=== PATIENT | female | born 1990 | race Caucasian/White ===

== ENCOUNTER 2017-02-25 23:55 | Emergency (ER) | payer OTHER ==
[~2017-02-25] VITALS: Ht 157.5 cm; Wt 54.4 kg
[~2017-02-25 23:55] MED LIST: ACHD5005 PO; AZIT250T81 PO; FRS325T PO; IBP600T1 PO; NAPR-243 PO; OXYC-12 PO; PENI500T PO; PREN1TAB25 PO; PREN1TAB39; TRAM50TA2 PO; VALACYCLOVIR HCL PO
[2017-02-26] MEDS ORDERED: NS IV 1000 ML 1,000 ML IV STA (00:14)
[2017-02-26] MEDS ORDERED: fentaNYL INJECTION 100 MCG/2 ML AMP IVP STA (00:14)
[2017-02-26] MEDS ORDERED: ONDANSETRON 4 MG/2 ML (SDV) Z0FRAN IVP ONE (00:15)
[2017-02-26] MEDS ORDERED: HYOSCYAMINE 0.125 MG (LEVSIN) TAB SL ONE (00:15)
[2017-02-26 00:19] VITALS: BP 135/94
--- NOTE | 2017-02-26 00:27 | ED Abdominal Pain ---
General Chief Complaint: Abdominal/GI Problems Stated Complaint: VOMITING AND DIARRHEA Nursing Triage Note: N/V/D Sepsis Screen: No Definite Risk Source of Information: Patient Exam Limitations: No Limitations History of Present Illness Time Seen By Provider: 00:07 Initial Comments Here with report of mid epigastric pain and nausea, vomiting and diarrhea. Patient states that she returned from [place] today and got back about 10 p.m. She ate food at a truck stop and this upset her stomach. She states that she's had 6 episodes of diarrhea since 10 p.m. as well as a couple episodes of vomiting. Denies blood in her vomit or stool. Denies dysuria. Denies fevers but reports chills. Timing/Duration: 4-6 Hours Severity/Quality: Moderate, Aching, Cramping Location: Epigastric Radiation: No Radiation Activities at Onset: None Modifying Factors: Worsens With Eating, Improves With Resting Associated Symptoms: No Back Pain, No Chest Pain, No Fever/Chills, No Nausea/ Vomiting, No Rash, No Shortness of Air, No Weakness Allergies and Home Medications Allergies Coded Allergies: morphine (Verified Allergy, Mild, 07/05/14) Home Medications No Active Prescriptions or Reported Meds Review of Systems Constitutional: see HPI, chills, No fever EENTM: No Symptoms Reported Respiratory: No Symptoms Reported Cardiovascular: No Symptoms Reported Gastrointestinal: See HPI, Abdominal Pain, Denies Blood Streaked Stools, Diarrhea, Nausea, Denies Rectal Bleeding, Vomiting Genitourinary: No Symptoms Reported Musculoskeletal: no symptoms reported Skin: no symptoms reported Psychiatric/Neurological: No Symptoms Reported All Other Systems Reviewed Negative Unless Noted: Yes Past Uhwdqmp-Kkkkzj-Qzbqbh Hx Patient Social History Alcohol Use: Occasionally Uses Recreational Drug Use: Yes Drug of Choice: CANNIBUS Smoking Status: Current Everyday Smoker Type Used: Cigarettes 2nd Hand Smoke Exposure: Yes Recent Foreign Travel: No Contact w/Someone Who Travel: No Recent Infectious Disease Expo: No Recent Hopitalizations: No Immunizations Up To Date Tetanus Booster (TDap): Less than 5yrs PED Vaccines UTD: Yes Date of Pneumonia Vaccine: Sep 19, 2011 Date of Influenza Vaccine: Jul 29, 2014 Seasonal Allergies Seasonal Allergies: No Surgeries HX Surgeries: Yes (plate and screws in L ankle, wisdom teeth, "piece of skin" off cheek) Surgeries: Orthopedic, Tubal Ligation Respiratory Hx Respiratory Disorders: No Cardiovascular Hx Cardiac Disorders: No Neurological Hx Neurological Disorders: No Reproductive System : No Hx Reproductive Disorders: No Sexually Transmitted Disease: No HIV/AIDS: No 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 Genitourinary Hx Genitourinary Disorders: Yes Genitourinary Disorders: Kidney Stones Gastrointestinal Hx Gastrointestinal Disorders: No Musculoskeletal Hx Musculoskeletal Disorders: No Endocrine Hx Endocrine Disorders: No HEENT HX ENT Disorders: Yes (FACIAL FRACTURE 11/27/15) Cancer Hx Cancer: No Psychosocial Hx Psychiatric Problems: No Integumentary HX Skin/Integumentary Disorder: No Blood Transfusions Hx Blood Disorders: Yes (anemia) Reviewed Nursing Assessment Reviewed/Agree w Nursing PMH: Yes Family Medical History Family Medial History: Alcoholism 19 FATHER Alzheimer's disease Arthritis Asthma 19 MOTHER Drug abuse 19 FATHER Hypercholesterolemia 19 MOTHER (PGF) Thyroid disease 19 MOTHER Physical Exam Vital Signs VS - Last 72 Hours, by Label 02/26/17 02/26/17 00:05 00:19 Temp 97.0 97.0 Pulse 62 62 Resp 16 16 B/P (MAP) 135/94 Pulse Ox 99 99 O2 Delivery Room Air Capillary Refill : Less Than 3 Seconds General Appearance: WD/WN, no apparent distress HEENT: PERRL/EOMI, pharynx normal Neck: full range of motion, supple Respiratory: lungs clear, normal breath sounds Cardiovascular: regular rate, rhythm, no murmur Peripheral Pulses: 2+ Dorsalis Pedis (R), 2+ Left Dors-Pedis (L), 2+ Radial Pulses (R), 2+ Radial Pulses (L) Gastrointestinal: soft, No guarding, No rebound, tenderness (epigastric) Extremities: non-tender, normal inspection Back: normal inspection, no CVA tenderness, no vertebral tenderness Neurologic/Psychiatric: alert, oriented x 3 Skin: normal color, warm/dry Progress/Results/Core Measures Results/Orders My Orders Orders - VANE ADAMS MD Amylase (02/26/17 00:14) Cbc With Automated Diff (02/26/17 00:14) Comprehensive Metabolic Panel (02/26/17 00:14) Lipase (02/26/17 00:14) Ondansetron Injection (Zofran Injectio (02/26/17 00:15) Ns Iv 1000 Ml (Sodium Chloride 0.9%) (02/26/17 00:14) Hyoscyamine Sl Tablet (Levsin Sl Tablet) (02/26/17 00:15) Saline Lock/Iv-Start (02/26/17 00:14) Fentanyl Injection (Sublimaze Injection (02/26/17 00:14) Hcg,Qualitative Serum (02/26/17 00:18) Vital Signs/I&O Vital Sign - Last 12Hours 02/26/17 02/26/17 00:05 00:19 Temp 97.0 97.0 Pulse 62 62 Resp 16 16 B/P (MAP) 135/94 Pulse Ox 99 99 O2 Delivery Room Air Blood Pressure Mean: 108 Progress Note : Progress Note Seen and evaluated. IV, labs, normal saline 1 L bolus, Zofran 4 mg IV, Levsin 0.125 mg by mouth and fentanyl 50 g IV ordered. Monitor patient. 0019: Patient states that she needs to get her phone and went out to her car apparently. 0125: Patient has not returned. Apparently eloped. Departure Impression Impression: Primary Impression: Nausea and vomiting Qualified Codes: R11.2 - Nausea with vomiting, unspecified Disposition: Condition: Unchanged Departure-Patient Inst. Decision time for Depature: 01:25 Referrals: NO,LOCAL PHYSICIAN (PCP) Primary Care Physician Add. Discharge Instructions: All discharge instructions reviewed with patient and/or family. Voiced understanding. Eloped. no instructions given. Scripts No Active Prescriptions or Reported Meds VANE ADAMS MD Feb 26, 2017 00:27
== END 2017-02-26 00:19 | disposition left against medical advice (07) ==
LOC: EDUNIT# 23:55 → ER 23:57
DX: R11.2 Nausea with vomiting, unspecified (principal); F17.210 Nicotine dependence, cigarettes, uncomplicated; Z98.51 Tubal ligation status; Z87.442 Personal history of urinary calculi
CPT/HCPCS: 99282

== ENCOUNTER 2017-12-02 09:14 | Observation (INO) | payer OTHER ==
[~2017-12-02] VITALS: Ht 162.6 cm; Wt 59.1 kg
[2017-12-02] VITALS (7 sets, daily range): BP systolic 96–113; BP diastolic 43–66
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
[2017-12-02] MEDS ORDERED: D5 NS 1000 ML IV SOLUTION 1,000 ML IV ONE ×2 (09:21→11:09)
[2017-12-02] MEDS ORDERED: WATER (STERILE) FOR INJECTION 20 ML ONE (09:26)
[2017-12-02] MEDS ORDERED: ZIPRASIDONE 20 MG INJ (GEODON) VIAL IM ONE (09:30)
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
[2017-12-02 10:18] LABS: BASOPHILS % (AUTO) 0 % (0-10); EOSINOPHILS # (AUTO) 0.1 10^3/uL (0.0-0.3); EOSINOPHILS % (AUTO) 1 % (0-10); HEMATOCRIT 36 % (35-52); HEMOGLOBIN 13.2 G/DL (11.5-16.0); LYMPHOCYTES # (AUTO) 1.2 X 10^3 (1.0-4.0); LYMPHOCYTES % (AUTO) 14 % (12-44); MEAN CORPUSCULAR HEMOGLOBIN 30 PG (25-34); MEAN CORPUSCULAR HGB CONC 37 G/DL (32-36); MEAN CORPUSCULAR VOLUME 80 FL (80-99); MEAN PLATELET VOLUME 10.7 FL (7.4-10.4); MONOCYTES # (AUTO) 0.8 X 10^3 (0.0-1.0); MONOCYTES % (AUTO) 9 % (0-12); NEUTROPHILS # (AUTO) 6.9 X 10^3 (1.8-7.8); NEUTROPHILS % (AUTO) 76 % (42-75); PLATELET COUNT 192 10^3/uL (130-400); RED BLOOD COUNT 4.46 10^6/uL (4.35-5.85); RED CELL DISTRIBUTION WIDTH 12.8 % (10.0-14.5)
[2017-12-02 10:38] LABS: ALANINE AMINOTRANSFERASE 10 U/L (0-55); ALBUMIN 4.7 GM/DL (3.2-4.5); ALKALINE PHOSPHATASE 60 U/L (40-136); BILIRUBIN,TOTAL 1.1 MG/DL (0.1-1.0); BUN/CREATININE RATIO 20; CALCIUM 9.6 MG/DL (8.5-10.1); CARBON DIOXIDE 20 MMOL/L (21-32); CHLORIDE 105 MMOL/L (98-107); CREATINE KINASE 125 U/L (29-168); CREATININE SERUM 0.75 MG/DL (0.60-1.30); GFR ESTIMATED > 60; GLUCOSE 99 MG/DL (70-105); POTASSIUM 3.7 MMOL/L (3.6-5.0); SODIUM 138 MMOL/L (135-145); TOTAL PROTEIN 7.3 GM/DL (6.4-8.2)
[2017-12-02 10:39] LABS: ACETAMINOPHEN < 10 UG/ML (10-30)
[2017-12-02 10:44] LABS: MYOGLOBIN SERUM 53.6 NG/ML (10.0-92.0)
[2017-12-02 11:39] LABS: BILIRUBIN,URINE NEGATIVE (NEGATIVE); CLARITY,URINE CLEAR; COLOR,URINE YELLOW; GLUCOSE, URINE (UA) 2+ (NEGATIVE); KETONES,URINE NEGATIVE (NEGATIVE); LEUKOCYTE ESTERASE ,URINE 1+ (NEGATIVE); NITRITE,URINE POSITIVE (NEGATIVE); PH,URINE 7 (5-9); PROTEIN,URINE 1+ (NEGATIVE); UROBILINOGEN,URINE NORMAL (NORMAL)
[2017-12-02 11:43] LABS: HCG,QUALITATIVE URINE NEGATIVE (NEGATIVE)
[2017-12-02 11:45] LABS: BACTERIA,URINE LARGE /HPF
[2017-12-02 11:52] LABS: AMPHETAMINE SCREEN, URINE POSITIVE (NEGATIVE); BENZODIAZEPINES SCREEN URINE POSITIVE (NEGATIVE); CANNABINOID SCREEN, URINE POSITIVE (NEGATIVE); COCAINE SCREEN URINE POSITIVE (NEGATIVE); METHAMPHETAMINE SCREEN URINE S POSITIVE (NEGATIVE)
[2017-12-02 11:53] LABS: BARBITURATE SCREEN URINE NEGATIVE (NEGATIVE); METHADONE STAT NEGATIVE (NEGATIVE); OPIATE SCREEN URINE NEGATIVE (NEGATIVE); OXYCODONE STAT NEGATIVE (NEGATIVE); PROPOXYPHENE STAT NEGATIVE (NEGATIVE); TRICYCLIC ANTIDEPRESSANTS SCRE NEGATIVE (NEGATIVE)
[2017-12-02] MEDS ORDERED: cefTRIAXone INJECTION 1,000 MG in NS (IVPB) 100 ML IV ONE (12:00)
[2017-12-02] MEDS ORDERED: ACETAMINOPHEN 500 MG TAB (TYLENOL) PO PRN (13:30)
[2017-12-02] MEDS ORDERED: ONDANSETRON 4 MG/2 ML (SDV) Z0FRAN IV PRN (13:30)
[2017-12-02] MEDS ORDERED: 1/2 NS W/KCL 20 MEQ/L 1,000 ML IV SCH (13:30)
[2017-12-02] MEDS ORDERED: inSUlin (REGULAR) HUMAN 1 UNIT/0.01 ML (CHARGE PER UNIT) SC SCH (18:00)
[2017-12-02] MEDS ORDERED: CATHETER FLUSH 10 ML SYR IV PRN (20:15)
--- NOTE | 2017-12-02 20:19 | History & Physical-Hospitalist ---
History of Present Illness HPI/Chief Complaint Patient left AMA before being seen by the admitting attending physician. Date Seen 12/02/17 Time Seen by Provider: 00:00 Attending Physician Silvana Dutton DO PCP No,Local Physician Referring Physician Date of Admission Dec 02, 2017 at 11:25 Home Medications & Allergies Home Medications Reviewed patient Home Medication Reconciliation performed by pharmacy medication reconciliations manufacturing maintenance technician and/or nursing. Patients Allergies have been reviewed. Allergies Allergies Coded Allergies morphine (Verified Allergy, Mild, 07/05/14) Past Yyyvezw-Kqxaru-Gpqlic Hx Past Med/Social Hx: Reviewed Nursing Past Med/Soc Hx Patient Social History Alcohol Use: Denies Use Number of Drinks Today: BB Alcohol Beverage of Choice: [place] Recreational Drug Use: Yes (Amphetamines, Methamphetamines, Benzo, Cocaine, Cannabinoids) Drug of Choice: CANNIBUS, meth Smoking Status: Current Everyday Smoker Type Used: Cigarettes 2nd Hand Smoke Exposure: Yes Recent Foreign Travel: No Contact w/other who traveled: No Recent Hopitalizations: No Recent Infectious Disease Expo: No Immunizations Up To Date Tetanus Booster (TDap): Less than 5yrs Pediatric: Yes Date of Pneumonia Vaccine: Sep 19, 2011 Date of Influenza Vaccine: Jul 29, 2014 Seasonal Allergies Seasonal Allergies: No Past Medical History Surgeries: Orthopedic, Tubal Ligation Reproductive: No Sexually Transmitted Disease: No HIV/AIDS: No Tubal Ligation Genitourinary: Kidney Stones History of Blood Disorders: Yes (anemia) Family History Alcoholism 19 FATHER Alzheimer's disease Arthritis Asthma 19 MOTHER Drug abuse 19 FATHER Hypercholesterolemia 19 MOTHER (PGF) Thyroid disease 19 MOTHER No Family History of: AIDS Abdominal aortic aneurysm Onur's disease Aphasia Cancer of mouth Cardiovascular disease Cataracts Colon cancer Completed stroke Congenital disease Congenital heart disease Coronary thrombosis Cystic fibrosis Deafness or hearing loss Dementia Diabetes mellitus Dysphasia Fibrocystic disease of breast Gastroenteritis Glaucoma Headache disorder Hypertension Infertility Kidney disease Myocardial infarction Neoplasm Not obtainable due to adoption Osteoporosis Parkinson's disease Prostate cancer Psychosocial problem Respiratory disorder Seizure disorder Severe allergy Tuberculosis Visual disorder Review of Systems Constitutional: see HPI Physical Exam Physical Exam Vital Signs Vital Signs - First Documented 12/02/17 12/02/17 09:14 12:55 Temp 98.0 Pulse 123 Resp 22 B/P (MAP) 139/104 (116) Pulse Ox 100 O2 Delivery Room Air Capillary Refill : Less Than 3 Seconds General Appearance: Other (Patient left AMA before being seen by the admitting attending physician.) Results Results/Procedures Labs Laboratory Tests 12/02/17 10:12 Patient resulted labs reviewed. Assessment/Plan Admission Diagnosis Patient left AMA before being seen by the admitting attending physician. Admission Status: Observation Clinical Quality Measures DVT/VTE Risk/Contraindication: Risk Factor Score Per Nursin RFS Level Per Nursing on Admit: 1=Low/No VTE PPX SILVANA DUTTON DO Dec 02, 2017 20:18
[2017-12-02] MEDS ORDERED: CATHETER FLUSH 10 ML SYR IV SCH (22:00)
[2017-12-03] MEDS ORDERED: POTASSIUM CL 10MEQ/50ML IVPB 50 ML IV SCH (06:00)
[2017-12-03] MEDS ORDERED: MAGNESIUM 1 GM/100 ML IVPB 100 ML IV SCH (06:00)
[2017-12-03] MEDS ORDERED: KCL 20 MEQ TAB (K-DUR) PO SCH (06:00)
[2017-12-03] MEDS ORDERED: cefTRIAXone 1 GM/NS 100 ML IVPB IV SCH ×2 (12:00)
== END 2017-12-02 19:34 | disposition left against medical advice (07) ==
LOC: EDUNIT# 09:14 → ER 09:15 → ICU 11:25
PROVIDERS: ADMIT Internal Medicine; ATTEND Internal Medicine
DX: F23 Brief psychotic disorder (principal); N30.00 Acute cystitis without hematuria; F19.10 Other psychoactive substance abuse, uncomplicated; F17.210 Nicotine dependence, cigarettes, uncomplicated
CPT/HCPCS: 36415; 51701; 80053; 80306; 80320; 80329; 81000; 82550; 82962; 83735; 83874; 84484; 84703; 85025; 87077; 87088; 87186; 96361; 96365; 96372